=== PATIENT | male | born 1970 | race Caucasian/White ===

== ENCOUNTER 2018-10-01 23:22 | Observation (INO) ==
[2018-10-02] MEDS ORDERED: Aspirin 325 MG Tablet PO ONE (00:02)
--- NOTE | 2018-10-02 00:08 | ED ---
HPI General Chief Complaint: Abdominal Pain Stated Complaint: Abd Pain Time Seen by Provider: 10/01/18 23:46 Source: patient and family Mode of arrival: ambulatory Limitations: no limitations History of Present Illness HPI narrative: Mr Soto is a 48 year old male who presents to the ED for evaluation of indigestion and burping that is similar to the onset of a previous episode in 06/2018 that led to a cardiac catheterization and 3 stents being placed. The patient states that at that time he had a feeling of indigestion and burning under his sternum that was completely new for him, as he has no history of acid reflux or GERD. He presented to the ED in [facility] and was subsequently treated via cardiac catheterization. 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 Today, he is having similar symptoms to the initial presentation in 06/2018 and is concerned he is having another cardiac event. He states he has had indigestion and belching for 3-3.5 hours. He denies chest pain, headache, nausea , vomiting, abdominal pain, syncope, lightheadedness, or SOB. His PMH is significant for DMT2, CAD, HTN, and hypercholesterolemia. He is on Brilinta and ASA. The patient denies tobacco, alcohol, or drug use. Currently states his discomfort is 4 out of 10. He took a baby aspirin. He denies any injury or trauma. Per patient symptoms are somewhat similar with the exception that she does not have a doom like sensation that he had when he had the initial NV. Related Data Home Medications Medication Instructions Recorded Confirmed aspirin 81 mg PO DAILY 10/01/18 10/01/18 atorvastatin 20 mg PO DAILY 10/01/18 10/01/18 metformin 2,000 mg PO DAILY 10/01/18 10/01/18 ticagrelor [Brilinta] 90 mg PO BID 10/01/18 10/01/18 Allergies Allergy/AdvReac Type Severity Reaction Status Date / Time No Known Allergies Allergy Verified 10/01/18 23:43 Review of Systems ROS: all other systems reviewed are negative [facility] Medical History Medical History Diabetes (Acute) HTN (hypertension) (Acute) High cholesterol (Acute) Surgical History Surgical History History of cardiac cath (Acute) History of coronary artery stent placement (Acute) Hx of prior ablation treatment (Acute) Social History Social History Smoking Status: Never smoker How Often Do You Have a Drink Containing Alcohol: Never Recent Travel in [place] within the Last 8 Weeks: No Recent Out of Country Travel within the Last 8 Weeks: No Immunization History Tetanus Immunization: Unsure Exam Narrative Exam Narrative: GENERAL: Patient is a well developed well nourished male in [facility]. SKIN: Warm and dry. HEAD: Atraumatic. Normocephalic. EYES: Pupils equal and round. No scleral icterus. No injection or drainage. ENT: No nasal bleeding or discharge. Mucous membranes pink and moist. NECK: Trachea midline. No JVD. CARDIOVASCULAR: Regular rate and rhythm. No murmurs rubs or gallops. RESPIRATORY: No accessory muscle use. Clear to auscultation. Breath sounds equal bilaterally. GASTROINTESTINAL: Abdomen soft, non-tender, nondistended. Hepatic and splenic margins not palpable. MUSCULOSKELETAL: Extremities without clubbing, cyanosis, or edema. No obvious deformities. Full ROM of the upper and lower extremities bilaterally. 2+ pulses in the upper and lower extremities bilaterally. NEUROLOGICAL: Awake and alert. No obvious cranial nerve deficits. Motor grossly within normal limits. Five out of 5 muscle strength in the arms and legs. Normal speech. PSYCHIATRIC: Appropriate mood and affect; insight and judgment normal. Course Initial Documented Vital Signs Temperature 98.2 F 10/01/18 23:40 Pulse Rate 73 10/01/18 23:40 Respiratory Rate 18 10/01/18 23:40 Blood Pressure 138/85 10/01/18 23:40 Pulse Oximetry 99 10/01/18 23:40 Last Documented Vital Signs Temperature 98.2 F 10/01/18 23:40 Pulse Rate 76 10/01/18 23:48 Respiratory Rate 16 10/01/18 23:48 Blood Pressure 137/86 10/01/18 23:48 Pulse Oximetry 99 10/01/18 23:48 Medical Decision Making MDM Narrative Medical decision making narrative: 48-year-old male who presents to the ED for evaluation of burping and symptoms similar to his previous cardiac disease. Labs and imaging were ordered. Patient was given aspirin. At this time case will be sent to my attending pain disposition and plan. Initial evaluation is negative. However, given his significant history of coronary artery disease status post 3 stents, he needs to be admitted to the chest pain center for further evaluation. He is agreeable with this plan. Medical Screen Exam Complete: Yes Emergency Medical Condition: Yes Differential Diagnosis Differential Diagnosis: STEMI versus an STEMI versus cardiac disease versus angina Medical Records Medical records reviewed: Yes I reviewed the patient's medical records. Lab Data Lab results reviewed: Yes I reviewed the patient's lab results. Result diagrams: 10/02/18 00:15 10/02/18 00:15 Lab Results 10/02/18 10/02/18 10/02/18 Range/Units 00:15 00:15 00:15 WBC 7.1 (4.0-11.0) th/mm3 RBC 3.75 L (4.50-5.90) mil/mm3 Hgb 10.8 L (13.0-17.0) gm/dL Hct 33.0 L (39.0-51.0) % MCV 87.8 (80.0-100.0) fL MCH 28.8 (27.0-34.0) pg MCHC 32.7 (32.0-36.0) % RDW 15.0 (11.6-17.2) % Plt Count 255 (150-450) th/mm3 MPV 10.1 (7.0-11.0) fL Prelim Diff (Auto) Slide review pending Neut % (Auto) 73.9 H (16.0-70.0) % Lymph % (Auto) 13.6 (9.0-44.0) % [place] % (Auto) 9.7 H (0.0-8.0) % Eos % (Auto) 1.3 (0.0-4.0) % Baso % (Auto) 1.5 (0.0-2.0) % Neut # (Auto) 5.3 (1.8-7.7) th/mm3 Lymph # (Auto) 1.0 (1.0-4.8) th/mm3 [place] # (Auto) 0.7 (0.0-0.9) th/mm3 Eos # (Auto) 0.1 (0.0-0.4) th/mm3 Baso # (Auto) 0.1 (0.0-0.2) th/mm3 WBC Differential . Diff Scan Auto diff confirmed Differential Comment . Platelet Estimate Normal (Normal) Platelet Morphology Normal (Normal) RBC Morphology Normal (Normal) PT 10.5 (9.8-11.6) sec INR 1.0 Ratio APTT 25.9 (23.4-31.7) sec Sodium 142 (136-145) meq/L Potassium 4.0 (3.5-5.1) meq/L Chloride 107 (98-107) meq/L Carbon Dioxide 26.0 (21.0-32.0) meq/L Anion Gap 9 (5-15) meq/L BUN 15 (7-18) mg/dL Creatinine 0.86 (0.60-1.30) mg/dL Estimated GFR Greater than 89 (>89) mL/min Random Glucose 132 H (74-106) mg/dL Calcium 8.6 (8.5-10.1) mg/dL Magnesium 2.0 (1.5-2.5) mg/dL Total Bilirubin 0.5 (0.2-1.0) mg/dL AST 24 (15-37) U/L ALT 21 (12-78) U/L Alkaline Phosphatase 61 (45-117) U/L Total Creatine Kinase 73 (39-308) U/L Troponin I Less than 0.02 L (0.02-0.05) ng/mL Total Protein 7.6 (6.4-8.2) g/dL Albumin 3.6 (3.4-5.0) g/dL Lipase 362 (73-393) U/L Imaging Data Radiologist's impression: Chest X-Ray 10/02/18 00:12 CONCLUSION: Negative examination. ECG Data Attestation: I personally reviewed and interpreted this ECG as follows: Interpretation: EKG shows sinus rhythm with no sign of acute ischemia and arrhythmia read by me and attending. Ventricular rate of 71 speed per minute, MA interval of 179 otf-seconds Discharge Plan Discharge Disposition Patient Disposition: ED Admit(ED Internal Use Only) Discharge Order Discharge Orders: ED Use Only Admit Order (Routine); Ordered 10/02/18 Ordered By: Imelda Becerra Discharge Details Diagnosis: Chest pain Physicians Team ED Provider: Imelda Becerra ED Midlevel Provider: Filipe Aldrich Primary Care Provider: Blaire Mascorro Rxs /Orders / Referrals /Forms Prescriptions: No Action atorvastatin 20 mg Tablet 20 mg PO DAILY RF: 0 aspirin 81 mg Tablet,Chewable 81 mg PO DAILY RF: 0 metformin 1,000 mg Tablet,Er Claudette.Retention 24 Hr 2,000 mg PO DAILY RF: 0 ticagrelor [Brilinta] 90 mg Tablet 90 mg PO BID RF: 0 Discharge Interventions Interventions: Vital Signs Last Done: 10/01/18 23:48 Status ED Status: With Doctor
[2018-10-02 00:24] LABS: Baso # (Auto) 0.1 th/mm3 (0.0-0.2); Baso % (Auto) 1.5 % (0.0-2.0); Eos # (Auto) 0.1 th/mm3 (0.0-0.4); Eos % (Auto) 1.3 % (0.0-4.0); Hemoglobin 10.8 gm/dL (13.0-17.0); Lymph % (Auto) 13.6 % (9.0-44.0); Mean Corpuscular HGB Conc 32.7 % (32.0-36.0); Mean Corpuscular Hemoglobin 28.8 pg (27.0-34.0); Mean Corpuscular Volume 87.8 fL (80.0-100.0); Mean Platelet Volume 10.1 fL (7.0-11.0); Mono # (Auto) 0.7 th/mm3 (0.0-0.9); Mono % (Auto) 9.7 % (0.0-8.0); Neut # (Auto) 5.3 th/mm3 (1.8-7.7); Neut % (Auto) 73.9 % (16.0-70.0); Platelet Count 255 th/mm3 (150-450); Red Blood Count 3.75 mil/mm3 (4.50-5.90); White Blood Count 7.1 th/mm3 (4.0-11.0)
--- NOTE | 2018-10-02 00:29 | XR ---
EXAM DATE: 10/02/2018 12:26 AM EST AGE/SEX: 48 years / Male INDICATIONS: Chest pain this evening. CLINICAL DATA: This is the patient's initial encounter. Patient reports that signs and symptoms have been present for 1 day and indicates a pain score of 3/10. MEDICAL/SURGICAL HISTORY: Hypertension. Coronary artery stent. COMPARISON: No prior exams available for comparison. FINDINGS: A single AP view of the chest demonstrates the lungs to be symmetrically aerated without evidence of mass, infiltrate or effusion. The cardiomediastinal contours are unremarkable. Osseous structures a re intact. CONCLUSION: Negative examination. Electronically signed by: Sixto Nino MD 10/02/2018 12:27 AM EST
[2018-10-02 00:32] LABS: Activated Partial Thrombo Time 25.9 sec (23.4-31.7); Prothrombin Time 10.5 sec (9.8-11.6)
[2018-10-02 00:48] LABS: Platelet Estimate Normal (Normal); Platelet Morphology Normal (Normal); RBC Morphology Normal (Normal)
[2018-10-02 00:50] LABS: Alanine Aminotransferase 21 U/L (12-78); Albumin 3.6 g/dL (3.4-5.0); Anion Gap 9 meq/L (5-15); Aspartate Aminotransferase 24 U/L (15-37); Blood Urea Nitrogen 15 mg/dL (7-18); Calcium 8.6 mg/dL (8.5-10.1); Chloride 107 meq/L (98-107); Glomerular Filtration Rate Greater Than 89 mL/min (>89); Glucose,Random 132 mg/dL (74-106); Lipase 362 U/L (73-393); Sodium 142 meq/L (136-145)
[2018-10-02 00:52] LABS: Alkaline Phosphatase 61 U/L (45-117); Total Protein 7.6 g/dL (6.4-8.2)
[2018-10-02 01:35] LABS: Creatine Kinase 73 U/L (39-308)
[2018-10-02 04:08] LABS: Creatine Kinase 128 U/L (39-308)
[2018-10-02 07:08] LABS: Creatine Kinase 51 U/L (39-308)
--- NOTE | 2018-10-02 09:09 | P.HPCA ---
History of Present Illness Primary Care Physician: Blaire Mascorro MD History of Present Illness: This is a 48-year-old male that presents to ED with history of CAD with 3 stents placed July 02, 2018 while he was in [place] that presents to ED to be evaluated for her symptoms which worried him, he thought that it may have been related to his heart as it was before. States that in June he was out of town on business when he was having a lot of burping and belching. He went to an ER and had some studies done including a CT coronary which showed a lot of calcium buildup and the decision was then made to do a cardiac catheterization. He states he was found to have a 99% stenosis of LAD and also needed stenting of OM1 and OM 2. States he never had any chest discomfort. Last night while at home he developed a burping and belching sensation as well. It lasted about 3 and half hours. He had no discomforts. Found nothing really to worsen or improve it. He was concerned as it felt the same as the symptoms led to his stenting in the past. He has followed Dr. Singh for chest pain but has had normal stress test. States he has not had a stress test or heart catheterization since stenting. He has seen Dr. Bridges for paroxysmal SVT and had a scheduled ablation September 06 for that. 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 He was placed on antibiotics for period of time secondary to that. Has not noticed any arrhythmias since. History of CAD with 3 stents July 02, 2018. Hyperlipidemia and diabetes. Denies hypertension. His father had CAD. Lifetime non-smoker. Denies alcohol or illicit drug use. - Diagnosis (1) CAD (coronary artery disease) (2) Hx of heart artery stent (3) Hyperlipidemia (4) Diabetes Review of Systems General: Patient denies fevers, chills, and recent travel. HEENT: Patient denies headache, sore throat, difficulty swallowing. Cardiovascular: Denies chest discomfort as mentioned above. Denies sensation of heart beating rapidly or irregularly. No syncope. Respiratory: Denies shortness of breath or inspirational chest discomfort. Denies coughing wheezing or hemoptysis. GI: Had sensation of belching and burping for about 3 and half hours. Patient denies nausea, vomiting, diarrhea, abdominal pain, bloody stools. Musculoskeletal: Patient denies joint pain or edema. Denies calf pain or edema. Neurovascular: Patient denies numbness, tingling, weakness in extremities. Denies headache. Endocrine: Denies polyuria and polydipsia. Hematologic: Denies easy bruising. Skin: Denies rash or itching. PMFSH - History History Provided By: Patient - Medical History Medical History: Medical History (Last Reviewed 10/02/18 @ 00:05 by CLARA Mauricio) Diabetes HTN (hypertension) High cholesterol - Surgical History Surgical History: Surgical History (Last Reviewed 10/02/18 @ 00:05 by CLARA Mauricio) History of cardiac cath Hx of prior ablation treatment History of coronary artery stent placement - Tobacco History Second Hand Smoke Exposure: No Smoking Status: Never smoker - Alcohol History How Often Do You Have a Drink Containing Alcohol: Never - Substance Use History Substance History: No History of Abuse - Travel History Recent Travel in the [place] Within the Last 8 Weeks: No Recent Travel Out of the Country Within the Last 8 Weeks: No - Immunization History Tetanus Immunization: Unsure Medications and Allergies Active Medications: Active Medications Sodium Chloride (Ns Flush) 2 ml IV.FLUSH BID DALILA Sodium Chloride (Ns Flush) 2 ml IV.FLUSH PRN PRN PRN Reason: FLUSH AFTER USING IV ACCESS Allergies Allergy/AdvReac Type Severity Reaction Status Date / Time No Known Allergies Allergy Verified 10/01/18 23:43 Home Medications Medication Instructions Recorded Confirmed Type aspirin 81 mg PO DAILY 10/01/18 10/01/18 History atorvastatin 20 mg PO DAILY 10/01/18 10/01/18 History metformin 2,000 mg PO DAILY 10/01/18 10/01/18 History ticagrelor [Brilinta] 90 mg PO BID 10/01/18 10/01/18 History Exam Vital signs: Vital Signs 10/01/18 23:40 10/01/18 23:48 10/02/18 02:33 Temperature 98.2 F Pulse Rate 73 76 65 Respiratory Rate 18 16 16 Blood Pressure 138/85 137/86 118/78 Pulse Oximetry 99 99 98 10/02/18 03:42 10/02/18 04:00 10/02/18 08:00 Temperature 97.8 F 97.8 F Pulse Rate 73 68 76 Respiratory Rate 20 20 Blood Pressure 128/80 109/71 Pulse Oximetry 100 99 Intake & Output 10/01/18 10/02/18 10/02/18 18:59 06:59 18:59 Intake Total 0 / 0 Balance 0 / 0 Weight 71.7 kg Intake: Oral 0 / 0 Other: # Voids 2 Date of Last Bowel Movement 10/01/18 Weight On Admission 72.575 kg Narrative: GENERAL: This is a well-nourished, well-developed patient, in no apparent distress. Patient speaks in clear complete sentences. Patient is pleasant. HEENT: Head is atraumatic and normocephalic. Neck is supple without lymphadenopathy and trachea is midline. No JVD or carotid bruits. CARDIOVASCULAR: Regular rate and rhythm without murmurs, gallops, or rubs. RESPIRATORY: Clear to auscultation. Breath sounds equal bilaterally. No wheezes , rales, or rhonchi. Chest wall is nontender. No use of accessory muscles. GASTROINTESTINAL: Abdomen is nontender, nondistended. Abdomen soft. No obvious pulsatile mass or bruit. No CVA tenderness. Strong femoral pulses bilaterally. Normal bowel sounds in all quadrants. MUSCULOSKELETAL: Patient is moving upper and lower extremities freely. No calf tenderness or edema, no Homans sign. Strong pulses in upper and lower extremities. NEUROLOGICAL: Patient is alert and oriented. Cranial nerves 2-12 are grossly intact. No focal deficits and speech is clear. SKIN: No rash and turgor is normal. Results 10/02/18 00:15 10/02/18 00:15 Cardiac Enzymes 10/02/18 10/02/18 10/02/18 Range/Units 00:15 03:15 06:13 AST 24 (15-37) U/L Troponin I Less than 0.02 L Less than 0.02 L Less than 0.02 L (0.02-0.05) ng/mL Coagulation 10/02/18 Range/Units 00:15 PT 10.5 (9.8-11.6) sec APTT 25.9 (23.4-31.7) sec CBC 10/02/18 Range/Units 00:15 WBC 7.1 (4.0-11.0) th/mm3 RBC 3.75 L (4.50-5.90) mil/mm3 Hgb 10.8 L (13.0-17.0) gm/dL Hct 33.0 L (39.0-51.0) % Plt Count 255 (150-450) th/mm3 Neut # (Auto) 5.3 (1.8-7.7) th/mm3 Lymph # (Auto) 1.0 (1.0-4.8) th/mm3 [place] # (Auto) 0.7 (0.0-0.9) th/mm3 Eos # (Auto) 0.1 (0.0-0.4) th/mm3 Baso # (Auto) 0.1 (0.0-0.2) th/mm3 Comprehensive Metabolic Panel 10/02/18 Range/Units 00:15 Sodium 142 (136-145) meq/L Potassium 4.0 (3.5-5.1) meq/L Chloride 107 (98-107) meq/L Carbon Dioxide 26.0 (21.0-32.0) meq/L BUN 15 (7-18) mg/dL Creatinine 0.86 (0.60-1.30) mg/dL Calcium 8.6 (8.5-10.1) mg/dL AST 24 (15-37) U/L ALT 21 (12-78) U/L Alkaline Phosphatase 61 (45-117) U/L Total Protein 7.6 (6.4-8.2) g/dL Albumin 3.6 (3.4-5.0) g/dL Intake and Output 10/01/18 10/02/18 10/02/18 22:59 06:59 14:59 Intake Total 0 / 0 Balance 0 / 0 Intake: Oral 0 / 0 Other: # Voids 2 Date of Last Bowel Movement 10/01/18 Weight 71.7 kg Weight On Admission 72.575 kg - Imaging and Cardiology Imaging: Impressions Chest X-Ray 10/02/18 00:12 CONCLUSION: Negative examination. EKG interpretations - EKG EKG shows: sinus rhythm (Sinus rhythm without significant ST segment depressions or elevations.) Caprini VTE Risk Assessment Caprini VTE Risk Assessment: No/Low Risk (score <= 1) Caprini Risk Assessment Model: Point Value = 1 Point Value = 2 Point Value = 3 Point Value = 5 Age 41-60 Minor surgery BMI > 25 kg/m2 Swollen legs Varicose veins or History of unexplained or recurrent spontaneous Oral contraceptives or hormone replacement Sepsis (< 1 month) Serious lung disease, including pneumonia (< 1 month) Abnormal pulmonary function Acute myocardial infarction Congestive heart failure (< 1 month) History of inflammatory bowel disease Medical patient at bed rest Age 61-74 Arthroscopic surgery Major open surgery (> 45 min) Laparoscopic surgery (> 45 min) Malignancy Confined to bed (> 72 hours) Immobilizing plaster cast Central venous access Age >= 75 History of VTE Family history of VTE Factor V Leiden Prothrombin [id number] Lupus anticoagulant Anticardiolipin antibodies Elevated serum homocysteine Heparin-induced thrombocytopenia Other congenital or acquired thrombophilia Stroke (< 1 month) Elective arthroplasty Hip, pelvis, or leg fracture Acute spinal cord injury (< 1 month) Prophylaxis Regimen: Total Risk Factor Score Risk Level Prophylaxis Regimen 0-1 Low Early ambulation 2 Moderate Order ONE of the following: *Sequential Compression Device (SCD) *Heparin 5000 units SQ BID 3-4 Higher Order ONE of the following medications: *Heparin 5000 units SQ TID *Enoxaparin/Lovenox 40 mg SQ daily (WT < 150 kg, CrCl > 30 mL/min) *Enoxaparin/Lovenox 30 mg SQ daily (WT < 150 kg, CrCl > 10-29 mL/min) *Enoxaparin/Lovenox 30 mg SQ BID (WT < 150 kg, CrCl > 30 mL/min) AND/OR *Sequential Compression Device (SCD) 5 or more Highest Order ONE of the following medications: *Heparin 5000 units SQ TID (Preferred with Epidurals) *Enoxaparin/Lovenox 40 mg SQ daily (WT < 150 kg, CrCl > 30 mL/min) *Enoxaparin/Lovenox 30 mg SQ daily (WT < 150 kg, CrCl > 10-29 mL/min) *Enoxaparin/Lovenox 30 mg SQ BID (WT < 150 kg, CrCl > 30 mL/min) AND *Sequential Compression Device (SCD) Assessment and Plan - Assessment (1) CAD (coronary artery disease) Code(s): I25.10 - Atherosclerotic heart disease of [place] coronary artery without angina pectoris Status: Acute (2) Hx of heart artery stent Code(s): Z95.5 - Presence of coronary angioplasty implant and graft Status: Acute (3) Hyperlipidemia Code(s): E78.5 - Hyperlipidemia, unspecified Status: Acute (4) Diabetes Code(s): E11.9 - Type 2 diabetes mellitus without complications Status: Acute - Plan * CAD: Patient will need follow-up with his roof technician. Resume his medications. * Hyperlipidemia: Continue medication. * Diabetes: Sliding scale insulin coverage while in chest pain center. Follow diabetic diet. Resume medication at discharge. Patient is stable at this time. He is agreeable to this plan. He should return to ED for interval issues. Patient underwent ETT. His belching symptoms reproduced during ETT and he had inferior lateral ST-T depressions more so inferiorly. Stress test was stopped shortly after reaching goal heart rate. His symptoms seem to resolve quickly in recovery and ST segments returned to baseline within [address] Matthew recommends patient to be admitted with consult to his roof technician for likely cardiac catheterization. I spoke with Dr. Eliecer Valdez who is covering for Dr. Almanzar. Recommends keeping the patient on his Brilinta, aspirin , and statin. Start 12.5 mg metoprolol twice daily, Nitropaste 1/2 inch every 6 hours, and heparin drip. This has been started. States that he will likely have heart catheterization with Dr. vilchis on Thursday. Patient is agreeable to this plan. H&P: Quality - VTE Deep Vein Thrombosis/Pulmonary Embolism Present on Admission: No
--- NOTE | 2018-10-02 09:19 | P.PNCA ---
Subjective Interval history: Patient was seen and evaluated by the physician furniture servicer and then presented. The patient was then subsequently seen and examined by me personally. I am in agreement with the documentation is entered and would only add that he represents a complex presentation due to the fact that his current symptoms are noncardiac however they are similar to his previous presentation when he subsequently was found to have known cardiac disease. He has also had an ablation for SVT complicated by a significant bleed in his abdomen. Subsequent to that he developed a fever and was placed on broad-spectrum antibiotics. Having just terminated his antibiotics it is certainly indeed possible that his GI problems currently could be related to antibiotic usage but again due to his prior presentation for evaluation including exercise stress testing will be carried out. Medications and Allergies Active Medications: Active Medications Sodium Chloride (Ns Flush) 2 ml IV.FLUSH BID DALILA Sodium Chloride (Ns Flush) 2 ml IV.FLUSH PRN PRN PRN Reason: FLUSH AFTER USING IV ACCESS Allergies Allergy/AdvReac Type Severity Reaction Status Date / Time No Known Allergies Allergy Verified 10/01/18 23:43 Home Medications Medication Instructions Recorded Confirmed Type aspirin 81 mg PO DAILY 10/01/18 10/01/18 History atorvastatin 20 mg PO DAILY 10/01/18 10/01/18 History metformin 2,000 mg PO DAILY 10/01/18 10/01/18 History ticagrelor [Brilinta] 90 mg PO BID 10/01/18 10/01/18 History Physical Exam Vital signs: Vital Signs 10/01/18 23:40 10/01/18 23:48 10/02/18 02:33 Temperature 98.2 F Pulse Rate 73 76 65 Respiratory Rate 18 16 16 Blood Pressure 138/85 137/86 118/78 Pulse Oximetry 99 99 98 10/02/18 03:42 10/02/18 04:00 10/02/18 08:00 Temperature 97.8 F 97.8 F Pulse Rate 73 68 76 Respiratory Rate 20 20 Blood Pressure 128/80 109/71 Pulse Oximetry 100 99 Intake & Output 10/01/18 10/02/18 10/02/18 18:59 06:59 18:59 Intake Total 0 / 0 Balance 0 / 0 Weight 71.7 kg Intake: Oral 0 / 0 Other: # Voids 2 Date of Last Bowel Movement 10/01/18 Weight On Admission 72.575 kg Narrative: Well-nourished well-developed man in no acute distress Neck supple no JVD masses nodes or bruits Chest clear to auscultation with no rales wheezes or rhonchi Cardiovascular the rhythm is regular sinus and there are no gallops rubs or murmurs Abdomen is soft nontender (slight tenderness in the right lower quadrant in the area of his known bleed) no guarding or rebound no hepatosplenomegaly Results 10/02/18 00:15 10/02/18 00:15 Cardiac Enzymes 10/02/18 10/02/18 10/02/18 Range/Units 00:15 03:15 06:13 AST 24 (15-37) U/L Troponin I Less than 0.02 L Less than 0.02 L Less than 0.02 L (0.02-0.05) ng/mL Coagulation 10/02/18 Range/Units 00:15 PT 10.5 (9.8-11.6) sec APTT 25.9 (23.4-31.7) sec CBC 10/02/18 Range/Units 00:15 WBC 7.1 (4.0-11.0) th/mm3 RBC 3.75 L (4.50-5.90) mil/mm3 Hgb 10.8 L (13.0-17.0) gm/dL Hct 33.0 L (39.0-51.0) % Plt Count 255 (150-450) th/mm3 Neut # (Auto) 5.3 (1.8-7.7) th/mm3 Lymph # (Auto) 1.0 (1.0-4.8) th/mm3 [place] # (Auto) 0.7 (0.0-0.9) th/mm3 Eos # (Auto) 0.1 (0.0-0.4) th/mm3 Baso # (Auto) 0.1 (0.0-0.2) th/mm3 Comprehensive Metabolic Panel 10/02/18 Range/Units 00:15 Sodium 142 (136-145) meq/L Potassium 4.0 (3.5-5.1) meq/L Chloride 107 (98-107) meq/L Carbon Dioxide 26.0 (21.0-32.0) meq/L BUN 15 (7-18) mg/dL Creatinine 0.86 (0.60-1.30) mg/dL Calcium 8.6 (8.5-10.1) mg/dL AST 24 (15-37) U/L ALT 21 (12-78) U/L Alkaline Phosphatase 61 (45-117) U/L Total Protein 7.6 (6.4-8.2) g/dL Albumin 3.6 (3.4-5.0) g/dL Intake and Output 10/01/18 10/02/18 10/02/18 22:59 06:59 14:59 Intake Total 0 / 0 Balance 0 / 0 Intake: Oral 0 / 0 Other: # Voids 2 Date of Last Bowel Movement 10/01/18 Weight 71.7 kg Weight On Admission 72.575 kg - Imaging and Cardiology Imaging: Impressions Chest X-Ray 10/02/18 00:12 CONCLUSION: Negative examination. Assessment and Plan - Assessment (1) CAD (coronary artery disease) Code(s): I25.10 - Atherosclerotic heart disease of [place] coronary artery without angina pectoris Status: Acute Plan: We will obtain an exercise stress test under close observation. If positive Dr. Ramos's will be contacted for discussion of further treatment. If negative he will be discharged to routine follow-up on an outpatient basis. (2) Hx of heart artery stent Code(s): Z95.5 - Presence of coronary angioplasty implant and graft Status: Acute (3) Hyperlipidemia Code(s): E78.5 - Hyperlipidemia, unspecified Status: Acute (4) Diabetes Code(s): E11.9 - Type 2 diabetes mellitus without complications Status: Acute - Plan * * CAD: Patient will need follow-up with his crisis therapist. Resume his medications. * Hyperlipidemia: Continue medication. * Diabetes: Sliding scale insulin coverage while in chest pain center. Follow diabetic diet. Resume medication at discharge. Patient is stable at this time. He is agreeable to this plan. He should return to ED for interval issues.
--- NOTE | 2018-10-02 09:29 | ECG ---
Date Performed: 10/02/2018 Time Performed: 06:18:55 PTAGE: 48 years EKG: Sinus rhythm MODERATE INTRAVENTRICULAR CONDUCTION DELAY BORDERLINE ECG No significant change PREVIOUS TRACING : 08/05/2015 03.00 DOCTOR: Kei Matthew Interpretating Date/Time 10/02/2018 09:28:09
--- NOTE | 2018-10-02 09:32 | ECG ---
Date Performed: 10/02/2018 Time Performed: 02:04:01 PTAGE: 48 years EKG: Sinus rhythm MODERATE INTRAVENTRICULAR CONDUCTION DELAY BORDERLINE ECG No significant change PREVIOUS TRACING : 10/01/2018 23.49 DOCTOR: Kei Matthew Interpretating Date/Time 10/02/2018 09:30:30
--- NOTE | 2018-10-02 09:32 | ECG ---
Date Performed: 10/02/2018 Time Performed: 03:53:10 PTAGE: 48 years EKG: Sinus rhythm MODERATE INTRAVENTRICULAR CONDUCTION DELAY BORDERLINE ECG No significant change PREVIOUS TRACING : 08/05/2015 03.00 DOCTOR: Kei Matthew Interpretating Date/Time 10/02/2018 09:30:18
--- NOTE | 2018-10-02 09:32 | ECG ---
Date Performed: 10/01/2018 Time Performed: 23:49:28 PTAGE: 48 years EKG: Sinus rhythm MODERATE INTRAVENTRICULAR CONDUCTION DELAY BORDERLINE ECG INTERPRETATION BASED ON A DEFAULT AGE OF 3 0 YEARS No change PREVIOUS TRACING : 08/05/2015 03.00 DOCTOR: Kei Matthew Interpretating Date/Time 10/02/2018 09:30:55
[2018-10-02] MEDS ORDERED: Acetaminophen 500 MG Tablet PO PRN (10:05)
[2018-10-02] MEDS ORDERED: Heparin 10,000 UNITS/10 ML Vial (for IV use) IV.PUSH STA (10:37)
[2018-10-02] MEDS: Metoprolol Tartrate 25 MG Tablet PO SCH ×2 (11:04→21:21)
--- NOTE | 2018-10-02 11:05 | TR ---
Date Performed: 10/02/2018 Time Performed: 09:22:47 DOCTOR: Kei Matthew DRUG LIST: CLINICAL HISTORY: REASON FOR TEST: Chest pain REASON FOR ENDING: OBSERVATION: CONCLUSION: SHELBIE PROTOCOL. HAD BELCHING SYMPTOMS DURING STRESS TEST. INF/LAT ST CHANGES.Maximum OQ=553 % Max HR Achieved=87.0% Maximum QN=981/78 Total Exercise Time=7:15 COMMENTS: Inferior lateral flat ST depression is seen suggestive of ischemia. Further evaluatio n recommended.
[2018-10-02] MEDS: Heparin Drip 25,000 UNIT/250 ML BAG IV.CONT PRN (11:33)
[2018-10-02 11:34] LABS: Activated Partial Thrombo Time 26.8 sec (23.4-31.7); INR 1.1 Ratio; Prothrombin Time 10.9 sec (9.8-11.6)
[2018-10-02] MEDS: Insulin NovoLIN Regular Correctional Sugar Inj SQ SCH ×2 (12:31→18:07)
[2018-10-02] MEDS ORDERED: Heparin 10,000 UNITS/10 ML Vial (for IV use) IV.PUSH PRN ×2 (16:37→16:38)
--- NOTE | 2018-10-02 18:35 | MB ---
cc: Eliecer Valdez MD DATE: 10/02/2018 REASON FOR CONSULTATION: Evaluation of acute coronary syndrome. HISTORY OF PRESENT ILLNESS: Aaron is a 48-year-old male followed by my colleague, Dr. Singh. He has hypertension, diabetes, hyperlipidemia, and a family history of coronary artery disease. He had an evaluation for uncontrolled burping and some burning sensation in his left chest that culminated in a cardiac catheterization 07/02/2018. His first obtuse marginal branch was stented with a 2.25 x 8 mm Resolute Gary stent deployed at 14 atmospheres. The second obtuse marginal branch was primarily stented with a 2.5 x 8 mm Gary stent deployed at 16 atmospheres. The mid LAD was predilated with a 2.5 mm balloon and stented with a 2.75 x 15 mm Resolute stent at 16 atmospheres. This led to resolution of his burping type symptoms. He was fine until last night. Last night, he developed symptoms similar to what he had prior to his stents. His troponins were negative, but he nuclear underwent a treadmill test that showed significant lateral ST changes and now he has been admitted. 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 This was complicated by bleeding from an inferior epigastric artery that underwent coil embolization successfully. PAST MEDICAL HISTORY: Includes: 1. Coronary artery disease. 2. Hypertension. 3. Diabetes. 4. Hyperlipidemia. 5. Paroxysmal supraventricular tachycardia that has been ablated. 6. He also had some atrial fibrillation during that EP study. PAST SURGICAL HISTORY: Includes prior shoulder repair. MEDICATIONS: None. FAMILY HISTORY: Positive for coronary artery disease. SOCIAL HISTORY: He is an RN. He has never smoked. PHYSICAL EXAMINATION: GENERAL: Shows a well-developed, well-nourished white male, in no acute distress. VITAL SIGNS: Charted. HEENT: Unremarkable. NECK: Negative for JVD or bruits. CHEST: Clear to auscultation. CARDIOVASCULAR: S1, S2. Regular rate and rhythm. No murmurs. No gallops. ABDOMEN: Soft, nontender. No masses or organomegaly. EXTREMITIES: No clubbing, cyanosis or edema. DATA: His hematocrit is 33.2. Remainder of are charted. EKG does not show any acute changes. ASSESSMENT: Suspected unstable angina. Symptoms are atypical, but similar to the symptoms he had prior to stenting. RECOMMENDATIONS: He has been started on low-dose nitroglycerin ointment and a beta monae. In addition, IV heparin on top of his aspirin and Brilinta. Will hold him n.p.o. after midnight Thursday. Anticipate he will need a cardiac catheterization Thursday by Dr. Singh. If he gets into acute trouble before then, we will do it over the weekend. All questions were answered. MD EFRA Valadez/penelope , 02:55 PM , 03:02 PM
[2018-10-03] MEDS: Insulin NovoLIN Regular Correctional Sugar Inj SQ SCH ×5 (00:16→22:19)
[2018-10-03 08:36] LABS: Hematocrit 36.6 % (39.0-51.0); Mean Corpuscular HGB Conc 32.8 % (32.0-36.0); Mean Corpuscular Hemoglobin 28.9 pg (27.0-34.0); Mean Corpuscular Volume 88.2 fL (80.0-100.0); Mean Platelet Volume 9.8 fL (7.0-11.0); Platelet Count 223 th/mm3 (150-450); Red Blood Count 4.15 mil/mm3 (4.50-5.90); White Blood Count 7.1 th/mm3 (4.0-11.0)
[2018-10-03] MEDS ORDERED: Influenza (Quadrivalent) Vaccine 0.5 ML Syringe IM ONE (09:00)
[2018-10-03 09:01] LABS: Carbon Dioxide 25.5 meq/L (21.0-32.0); Potassium 3.8 meq/L (3.5-5.1)
[2018-10-03] MEDS: Metoprolol Tartrate 25 MG Tablet PO SCH ×3 (10:19→18:44)
[2018-10-03] MEDS ORDERED: ALPRAZolam 0.25 MG Tablet PO ONE (10:50)
[2018-10-03] MEDS ORDERED: ALPRAZolam 0.25 MG Tablet PO PRN (10:51)
--- NOTE | 2018-10-03 11:02 | P.PNCA ---
Subjective Interval history: no angina. no "burping. Lots of questions from him and his were answered. Medications and Allergies Active Medications: Active Medications Acetaminophen (Tylenol) 500 mg PO Q6H PRN PRN Reason: pain scale 1-5 Hydrocodone Bitart/Acetaminophen ([place] 7.5/325) 1 tab PO Q6H PRN PRN Reason: pain scale 6-10 Albuterol (Duoneb Neb (Prn)) 1 ampul NEB Q4HR NEB PRN PRN Reason: SHORTNESS OF BREATH/WHEEZING Alprazolam (Xanax) 0.25 mg PO Q6H PRN PRN Reason: ANXIETY Aspirin (Aspirin Chew) 81 mg PO DAILY [facility] Last Admin: 10/03/18 10:18 Dose: 81 mg Atorvastatin Calcium (Lipitor) 20 mg PO DAILY [facility] Last Admin: 10/03/18 10:18 Dose: 20 mg Heparin Sodium (Porcine) (Heparin Inj) 2,500 units IV.PUSH UNSCH PRN PRN Reason: aPTT 25-39 Last Admin: 10/03/18 01:23 Dose: 2,500 units Heparin Sodium (Porcine) (Heparin Inj) 5,000 units IV.PUSH UNSCH PRN PRN Reason: aPTT < 25 Heparin Sodium/Dextrose (Heparin/D5w 25,000 U/250 Ml) 25,000 unit in 250 mls @ 9 mls/hr IV.CONT TITRATE PRN; Protocol PRN Reason: Per Protocol Last Titration: 10/03/18 06:03 Dose: 1,000 units/hr, 10 mls/hr Sodium Chloride (Ns Inj) 1,000 mls @ 100 mls/hr IV.CONT .Q10H [facility] Insulin Human Regular (Novolin R [place] Sugar Inj) 0 units SQ ACHS DALILA; Protocol Last Admin: 10/03/18 10:20 Dose: Not Given Metoprolol Tartrate (Lopressor) 12.5 mg PO BID [facility] Last Admin: 10/03/18 10:19 Dose: 12.5 mg Pantoprazole Sodium (Protonix) 40 mg PO DAILY [facility] Last Admin: 10/03/18 10:19 Dose: 40 mg Sodium Chloride (Ns Flush) 2 ml IV.FLUSH BID [facility] Last Admin: 10/03/18 10:20 Dose: 2 ml Sodium Chloride (Ns Flush) 2 ml IV.FLUSH PRN PRN PRN Reason: FLUSH AFTER USING IV ACCESS Ticagrelor (Brilinta) 90 mg PO BID DALILA Last Admin: 10/03/18 10:19 Dose: 90 mg Allergies Allergy/AdvReac Type Severity Reaction Status Date / Time No Known Allergies Allergy Verified 10/01/18 23:43 Home Medications Medication Instructions Recorded Confirmed Type aspirin 81 mg PO DAILY 10/01/18 10/01/18 History atorvastatin 20 mg PO DAILY 10/01/18 10/01/18 History metformin 2,000 mg PO DAILY 10/01/18 10/01/18 History ticagrelor [Brilinta] 90 mg PO BID 10/01/18 10/01/18 History Physical Exam Vital signs: Vital Signs 10/02/18 11:25 10/02/18 15:30 10/02/18 20:00 Temperature 98.7 F 98.0 F 98.3 F Pulse Rate 79 68 69 Respiratory Rate 20 20 16 Blood Pressure 119/78 114/75 113/80 Pulse Oximetry 100 98 99 10/03/18 00:00 10/03/18 04:00 10/03/18 08:00 Temperature 98.9 F 98.2 F 98.3 F Pulse Rate 80 62 73 Respiratory Rate 17 14 17 Blood Pressure 110/82 109/64 131/80 Pulse Oximetry 100 96 98 Intake & Output 10/02/18 10/03/18 10/03/18 18:59 06:59 18:59 Intake Total 550 / 550 Output Total 3 / 3 600 / 600 Balance -3 / -3 -50 / -50 Weight 72.5 kg Intake: IV 130 / 130 Heparin/D5W 25,000 U/250 mL 25, 130 / 130 000 unit In 250 ml @ 900 UNITS/ HR 9 mls/hr IV.CONT TITRATE PRN Rx#:[id number] Oral 420 / 420 Output: Urine 3 / 3 600 / 600 Other: # Voids 3 # Bowel Movements 1 Narrative: Had a 10 beat run [place] 0517 with no symptoma Alert, slightly anxious Neck: no JVD Chest CTA. CV S1S2 RRR with 1-2/6 ASH Abd soft Ext no C/C/E, pulses intact Results 10/03/18 08:20 10/03/18 08:20 Cardiac Enzymes 12/08/18 12/08/18 12/08/18 Range/Units 00:15 03:15 06:13 AST 24 (15-37) U/L Troponin I Less than 0.02 L Less than 0.02 L Less than 0.02 L (0.02-0.05) ng/mL 10/03/18 Range/Units 08:20 AST (15-37) U/L Troponin I Less than 0.02 L (0.02-0.05) ng/mL Coagulation 10/02/18 10/02/18 10/02/18 Range/Units 00:15 10:55 16:15 PT 10.5 10.9 (9.8-11.6) sec APTT 25.9 26.8 40.8 H D (23.4-31.7) sec 10/02/18 10/03/18 Range/Units 23:47 08:20 PT (9.8-11.6) sec APTT 37.4 H 50.3 H D (23.4-31.7) sec CBC 10/02/18 10/03/18 Range/Units 00:15 08:20 WBC 7.1 7.1 (4.0-11.0) th/mm3 RBC 3.75 L 4.15 L (4.50-5.90) mil/mm3 Hgb 10.8 L 12.0 L (13.0-17.0) gm/dL Hct 33.0 L 36.6 L (39.0-51.0) % Plt Count 255 223 (150-450) th/mm3 Neut # (Auto) 5.3 (1.8-7.7) th/mm3 Lymph # (Auto) 1.0 (1.0-4.8) th/mm3 [place] # (Auto) 0.7 (0.0-0.9) th/mm3 Eos # (Auto) 0.1 (0.0-0.4) th/mm3 Baso # (Auto) 0.1 (0.0-0.2) th/mm3 Comprehensive Metabolic Panel 10/02/18 10/03/18 Range/Units 00:15 08:20 Sodium 142 138 (136-145) meq/L Potassium 4.0 3.8 (3.5-5.1) meq/L Chloride 107 105 (98-107) meq/L Carbon Dioxide 26.0 25.5 (21.0-32.0) meq/L BUN 15 14 (7-18) mg/dL Creatinine 0.86 0.96 (0.60-1.30) mg/dL Calcium 8.6 9.0 (8.5-10.1) mg/dL AST 24 (15-37) U/L ALT 21 (12-78) U/L Alkaline Phosphatase 61 (45-117) U/L Total Protein 7.6 (6.4-8.2) g/dL Albumin 3.6 (3.4-5.0) g/dL Intake and Output 10/02/18 10/03/18 10/03/18 22:59 06:59 14:59 Intake Total 550 / 550 Output Total 600 / 600 Balance -50 / -50 Intake: IV 130 / 130 Heparin/D5W 25,000 U/250 mL 25, 130 / 130 000 unit In 250 ml @ 900 UNITS/ HR 9 mls/hr IV.CONT TITRATE PRN Rx#:[id number] Oral 420 / 420 Output: Urine 600 / 600 Other: # Voids 3 # Bowel Movements 1 Weight 72.5 kg 72.5 kg - Imaging and Cardiology Imaging: Impressions Chest X-Ray 10/02/18 00:12 CONCLUSION: Negative examination. Assessment and Plan - Assessment (1) Unstable angina pectoris due to coronary arteriosclerosis Code(s): I25.110 - Atherosclerotic heart disease of [place] coronary artery with unstable angina pectoris Status: Acute (2) Ventricular tachycardia (paroxysmal) Code(s): I47.2 - Ventricular tachycardia Status: Acute (3) CAD (coronary artery disease) Code(s): I25.10 - Atherosclerotic heart disease of [place] coronary artery without angina pectoris Status: Acute (4) Hx of heart artery stent Code(s): Z95.5 - Presence of coronary angioplasty implant and graft Status: Acute (5) Hyperlipidemia Code(s): E78.5 - Hyperlipidemia, unspecified Status: Acute - Plan Patient needs cardiac cath since he likely has restenosis or a new lesion. He is asymptomatic - prefer to schedule with Dr. Singh in AM since he looks stable. NSVT was asymptomatic. If arrythmia worsens will do today but makes more sense to do during regular hours/ no evidence of NSTEMI. Add Xanax for anxiety. Intensify antianginal therap by increasing his nitropaste to 1' q6h.
[2018-10-03] MEDS: Heparin Drip 25,000 UNIT/250 ML BAG IV.CONT PRN (13:49)
--- NOTE | 2018-10-03 16:53 | P.PNIM ---
Subjective Interval history: Patient is seen lying quietly in bed. He reports that he is feeling okay with no chest pain or shortness of breath at this time. Did have an episode of V. tach however that has resolved. No nausea vomiting or diarrhea. No fever or chills. Physical Exam Vital signs: Last Vital Signs Temp 97.8 F 10/03/18 12:00 Pulse 62 10/03/18 12:00 Resp 17 10/03/18 12:00 BP 110/72 10/03/18 12:00 Pulse Ox 100 10/03/18 12:00 Intake & Output 10/01/18 10/02/18 10/03/18 10/04/18 06:59 06:59 06:59 06:59 Intake Total 0 / 0 550 / 550 120 / 120 Output Total 603 / 603 Balance 0 / 0 -53 / -53 120 / 120 Weight 71.7 kg 72.5 kg Narrative: GENERAL: Well-nourished, well-developed adult male in no obvious distress. SKIN: Warm and dry. HEAD: Atraumatic. Normocephalic. CARDIOVASCULAR: Regular rate and rhythm. RESPIRATORY: No accessory muscle use. Clear to auscultation. Breath sounds equal bilaterally. GASTROINTESTINAL: Abdomen soft, non-tender, non-distended. Positive bowel sounds. MUSCULOSKELETAL: Extremities without clubbing, cyanosis, or edema. No obvious deformities. NEUROLOGICAL: Awake and alert. No obvious cranial nerve deficits. Motor grossly within normal limits. Normal speech. PSYCHIATRIC: Appropriate mood and affect; insight and judgment good. Results Labs CBC & Chem 7: 10/03/18 08:20 10/03/18 08:20 Labs: Microbiology 10/02/18 20:00 Stool Stool Occult Blood (VINOD) - Final Hemoccult negative Assessment and Plan (1) Unstable angina pectoris due to coronary arteriosclerosis: Code(s): I25.110 - Atherosclerotic heart disease of [place] coronary artery with unstable angina pectoris Status: Acute (2) Ventricular tachycardia (paroxysmal): Code(s): I47.2 - Ventricular tachycardia Status: Acute (3) CAD (coronary artery disease): Code(s): I25.10 - Atherosclerotic heart disease of [place] coronary artery without angina pectoris Status: Acute (4) Hx of heart artery stent: Code(s): Z95.5 - Presence of coronary angioplasty implant and graft Status: Acute (5) Hyperlipidemia: Code(s): E78.5 - Hyperlipidemia, unspecified Status: Acute Plan Patient is a 48-year-old male with a history of diabetes, hyperlipidemia, recent ablation (complicated by bleed and fever), and CAD with 3 stents placed 07/02/18 who presents to the emergency room with a complaint of chest discomfort as well as belching and burping. He reports that these are similar to symptoms that he had prior to his last cardiac cath. CAD/unstable angina/ventricular tachycardia -Cardiology consulted-plan to cath on Thursday morning -N.p.o. after midnight tonight -Heparin drip, Nitropaste, Xanax for anxiety Hyperlipidemia; chronic -Continue home medication Diabetes; chronic -Sliding scale coverage DVT prophylaxis: On heparin drip Discharge planning: Likely home once cleared by cardio Progress Note: Quality VTE Deep Vein Thrombosis/Pulmonary Embolism Present on Admission: No _ (1) CAD (coronary artery disease) Qualifiers: Associated angina: Coronary Disease-Associated Artery/Lesion type: [place] vs. transplanted heart: (2) Hyperlipidemia Qualifiers: Hyperlipidemia type:
[2018-10-04] MEDS ORDERED: Iohexol 350 MG/ML 100 ML Vial (for Cath Lab) IVCONTRAST ONE (01:53)
[2018-10-04] MEDS: Sod Chloride 0.9% Inj 1,000 ML IV.CONT SCH ×2 (05:51→16:18)
[2018-10-04 08:46] LABS: Hematocrit 33.4 % (39.0-51.0); Hemoglobin 10.8 gm/dL (13.0-17.0); Mean Corpuscular HGB Conc 32.5 % (32.0-36.0); Mean Corpuscular Volume 89.4 fL (80.0-100.0); Mean Platelet Volume 10.4 fL (7.0-11.0); Platelet Count 206 th/mm3 (150-450); Red Blood Count 3.73 mil/mm3 (4.50-5.90); Red Cell Distribution Width 15.6 % (11.6-17.2); White Blood Count 5.7 th/mm3 (4.0-11.0)
[2018-10-04] MEDS: Metoprolol Tartrate 25 MG Tablet PO SCH ×2 (08:52→20:30)
[2018-10-04] MEDS: Insulin NovoLIN Regular Correctional Sugar Inj SQ SCH ×4 (08:54→20:09)
[2018-10-04] MEDS ORDERED: Heparin/NS PF Inj 1,000 ML ONE (10:43)
[2018-10-04] MEDS ORDERED: Heparin 10,000 UNITS/10 ML Vial (for IV use) ONE (10:44)
[2018-10-04] MEDS ORDERED: Lidocaine PF 1% Inj 30 ML Vial ONE (10:44)
[2018-10-04] MEDS ORDERED: fentaNYL Citrate Inj 100 MCG/2 ML Ampul ONE (10:44)
--- NOTE | 2018-10-04 11:35 | CATHPROC ---
[facility] HIS Report Study Information Study Number Admission Scheduled Start Study Start [id number] Oct 02 2018 1:52AM 10/04/2018 Oct 04 2018 10:20AM [place] Service Cardiac Catheterization Admit Source Facility Department Other [facility] - Transformer Assembler Physician and Clinical Staff Initial Long Simmons Chemical Dependency Counselor Blas Basurto,CARLOS A Chemical Dependency Counselor Mayra Betancur,CARLOS A Recorder Federica Collazo ,RT(R) Scrub Kateryna Mujica,JOSE ENRIQUE TECH2 Procedures Performed Procedure Location (Site) Vessel Name Coronary Angiograms LCA Left Coronary Coronary Angiograms RCA Right Coronary L Heart Cath LV Gram-hand inj. LV LV Ventricle Equipment Time Head Worker Description Size Mfg Part Number Used/Scraped TRANSDUCER, TRUWAVE [id number] 10:55 BAZAN TAFOYA * Used W/STOCKCOCK *[id number] *[id number] 10:55 MALLINCKRODT SYRINGE, ANGIOMAT 150ML 150ML *[id number] Used 2S MEDICAL CONCEPT DRAPE, RADIAL FEMORAL FULL 10:55 * [id number] *[id number] Used DEVELOPMENT BODY [id number] 10:55 Flocations BLANKET,WARM AIR CCL * Used *[id number] 10:55 Flocations PACK, CCL CUSTOM * Used *[id number] 10:55 Flocations SUPPORT, ARTERIAL ADULT 29799 *[id number] Used [id number] 10:55 Powderhook PACER PEN, SKIN DUAL W/ RULER * Used *[id number] 11:13 MEDTRONIC MPA 1 DXTERITY CATHETER FR 6 [id number] Used BAND, RADIAL COMPRESSION TR [id number] 11:18 [employer]Mob 24CM Used SHORT 24 *[id number] SHEATH, FR6 RADIAL PRELUDE 10:55 [employer]ob FR 6 [id number] Used EASE 11CM [id number] 10:55 [employer] WIRE, EXCHANGE 260CM 3MMJ 260CM Used *[id number] 10:55 NAMIC MANIFOLD, 4 PORT * Used *[id number] 10:55 NYCOMED OMNIPAQUE, 350 MG, 150ML 150ML [id number] Used CATHETER, FR5 OPTITORQUE [id number] 11:08 [employer] MEDICAL FR 5 Used RADIAL TIG 4.0 *[id number] History: Current Medications Medication Dosage/Unit Route Frequency Last Date/Time Taken ASA Statins (any) History: Allergies Allergy Reaction No Known Allergies History: Risk Factors Family History of Hypertension Dyslipidemia Previous LA Previous Heart Failure Premature CAD Yes Yes Yes No No Prior Valve Prior PCI Prior PCIDate Prior CABG Surgery No Yes 07/13/2018 No Cerebrovascular Peripheral Artery Chronic Lung On Dialysis Diabetes Diabetes Therapy Disease Disease Disease No No No No Yes Oral Labs Hgb (g/dl) Hct (%) WBC (l/cumm) Platelets (thousands) 11.60-17.00 35.00-51.00 4.00-11.00 150.00-450.00 10.8 33.4 5.7 206 Glucose (mg/dl) BUN (mg/dl) Creatinine (mg/dl) BUN:Creatinine (1:x) 74.00-106.00 7.00-18.00 0.50-1.30 10.00-20.00 117 14 0.9 15.6 Na (meq/l) K (meq/l) 136.00-145.00 3.50-5.10 138 3.8 INR (PTT:PT) 0.90-1.10 1.1 Troponin I (ng/ml) CPK-MB (ng/ML) 0.02-0.05 0.50-3.60 0.02 Not Drawn Medication Medication Total Dose (Bolus/Oral) Medication Total Dosage/Unit 1% XYLOCAINE 20 mL FENTANYL 50 mcg RADIAL COCKTAIL 5 mL (Bolus) VERSED 2 mg Medications (Bolus/Oral) Medication Time Given Dosage/Unit Administered By Reason 10/04/2018 11:03:13 VERSED 2 mg Mayra Betancur AM 2 mg VERSED given in lab by Mayra Betancur, CARLOS A in Right Antecubital via Peripheral IV. Ordered by Long Messina. 10/04/2018 11:04:15 FENTANYL 50 mcg Long Singh AM 50 mcg FENTANYL given in lab by Long Singh in Right Antecubital via Peripheral IV. 10/04/2018 11:04:57 1% XYLOCAINE 20 mL Mayra Betancur AM 20 mL 1% XYLOCAINE given in lab by Mayra Betancur, CARLOS A via Subcutaneous. Ordered by Long Singh. 10/04/2018 11:06:38 Ntg 200mcg Verapamil 2.5mg Heparin RADIAL COCKTAIL 5 mL (Bolus) Samantha, Long AM 2500U 5 mL (Bolus) RADIAL COCKTAIL given in lab by Long Singh in Right Radial via Radial. Using [Solution Name]. Ordered by Long Singh. Reason: Ntg 200mcg Verapamil 2.5mg Heparin 2500U. Medication (Drip) Medication Time Given Dosage/Unit Concentration/Unit Diluent (ml) Solution 10/04/2018 10:41:53 IV Solutions 50 mL (IV) NaCl .9 AM Patient arrived on IV Solutions via Peripheral IV. Pump/Drip Flow using NaCl .9. Initial Case Assessment Cardiovascular HR NIBP Chest Pain 82 135/87 0 Edema Present Skin color Skin None Normal Warm Dry Circulatory - Right Pulses Dorsalis Pedis Femoral Radial 1 1 1 Scale (0,1,2,3,4,d) Circulatory - Left Pulses Dorsalis Pedis Femoral Radial 1 1 Scale (0,1,2,3,4,d) Neurological State Oriented to time-place- Alert Moves all extremities person Respiration - General Respiration Rate SpO2 (%) (B/min) 11 100 Final Case Assessment Cardiovascular HR NIBP Chest Pain 70 119/77 0 Edema Present Skin color Skin None Normal Warm Dry Circulatory - Right Pulses Dorsalis Pedis Femoral Radial 1 1 1 Scale (0,1,2,3,4,d) Circulatory - Left Pulses Dorsalis Pedis Femoral Radial 1 1 Scale (0,1,2,3,4,d) Neurological State Oriented to time-place- Alert Moves all extremities person Respiration - General Respiration Rate SpO2 (%) (B/min) 11 97 Chronological Log Time Study Chronological Log 10:30:27 Patient arrived via Bed. 10:30:33 Patient Name, D.O.B, / Armband Verified By R.N. Vitals capture started with the following parameters, Patient=Adult, Interval=5 min, Initial Pr hfwdcq=886 mmHg, 10:39:21 Deflation Rate=5 mmHg, Cuff placed on Left Arm 10:39:54 HR=77 bpm, GSLP=654/87 mmhg, SpO2=99.0 %, Resp=14 B/min 10:41:42 Consent signed by the physician and the patient and verified by the Transformer Assembler staff. 10:41:43 Pre-op and post- op instructions given; patient acknowledges understanding of instructions. 10:41:43 Verbal Stimulation=2 Physical Stimulation=2 Airway=2 Respiration=2 TOTAL=8. (0=absent, 1=li mited, 2=present) 10:41:45 Allens test performed on the right radial and ulnar artery. positive 10:41:46 Immediate Presedation assesment performed by physician. 10:41:48 Patient has been NPO for More than 6Hrs. 10:41:49 Skin Breakdown- bruising right groin 10:41:49 Patient Warmer Placed on the Table. 10:41:52 Dariela Prominences Protected 10:41:53 A # 20 IV was noted in the Antecubital (right). Grade = 0 10:41:53 Patient arrived on IV Solutions via Peripheral IV. Pump/Drip Flow using NaCl .9. 10:41:55 History and physical on the chart or being dictated. Assessment: Initial Case, HR=82 BPM, TJFE=275/87 mmhg, Chest Pain=0, Edema=None, Color=Normal, Skin = Warm, Dry Right Pulses: Rommel Ped=1, Femoral=1, Radial=1 10:41:56 Left Pulses: Rommel Ped=1, Femoral=1 Neurological: State=Alert, Ox3, DOLL Respiration: Resp=11 B/min, DdK2=558 % 10:43:24 Reference ECG taken 10:44:57 HR=83 bpm, SZIO=832/89 mmhg, InY6=678.0 %, Resp=6 B/min, Pain=0, Harpreet=10, Elizabeth=2 10:49:56 HR=76 bpm, NRDA=975/88 mmhg, Resp=19 B/min 10:49:59 Right Radial and groin(s) prepped with 2% chlorhexidine, and draped after a 3 min. waiting time. 10:54:55 HR=74 bpm, HEUL=246/85 mmhg, SpO2=99.0 %, Resp=10 B/min, Pain=0, Harpreet=10, Elizabeth=2 10:54:57 MD paged 10:55:46 MD responded 10:56:47 Pressure channel 1 zeroed. 10:58:38 MD arrived. 10:59:56 HR=84 bpm, CNCO=104/88 mmhg, SpO2=99 %, Resp=12 B/min, Pain=0, Harpreet=10, Elizabeth=2 Time Out. Correct patient, correct procedure, correct physician, labs, allergies, and equipment verified with laborer cement gun placing 11:03:06 team present. Fire risk assesment completed (see hard stop sheet for coding). Time Out Conc urred by MD and individual staff in procedure. 11:03:13 2 mg VERSED given in lab by Mayra Betancur, RN in Right Antecubital via Peripheral IV. Ord ered by Long Singh. 11:03:31 Case Start 11:04:15 50 mcg FENTANYL given in lab by Long Singh in Right Antecubital via Peripheral IV. 11:04:57 HR=76 bpm, HKQX=396/81 mmhg, BdM3=118.0 %, Resp=12 B/min, Pain=0, Harpreet=10, Elizabeth=2 11:04:57 20 mL 1% XYLOCAINE given in lab by Mayra Betancur, RN via Subcutaneous. Ordered by Long Singh. 11:06:02 Access site was Right Radial Artery . 11:06:36 A sheath was advanced into the Fem Art (right) using the ~TECHNIQUE~ technique. 5 mL (Bolus) RADIAL COCKTAIL given in lab by Long Singh in Right Radial via Radial. Using [So lution Name]. Ordered 11:06:38 by Long Singh. Reason: Ntg 200mcg Verapamil 2.5mg Heparin 2500U. A CATHETER, FR5 OPTITORQUE RADIAL TIG 4.0 FR 5 was advanced over a wire. OMNIPAQUE, 350 MG, 150 ML 150ML 11:07:26 was used for injections. Recorded Pressure: Ao, HR=77, Condition=Condition 1 11:07:56 (Aorta) Ao 118/74/95 11:08:37 The LCA was injected and visualized at various angles. OMNIPAQUE, 350 MG, 150ML 150ML used . 11:10:00 HR=84 bpm, KBAU=521/71 mmhg, SpO2=98.0 %, Resp=12 B/min, Pain=0, Harpreet=10, Elizabeth=2 11:10:37 The RCA was injected and visualized at various angles. OMNIPAQUE, 350 MG, 150ML 150ML used . 11:11:40 After removing the current catheter a JL 3.5 INFINITI CATHETER FR 6 was advanced over a wir e. 11:12:17 The LCA was injected and visualized at various angles. OMNIPAQUE, 350 MG, 150ML 150ML used . After removing the current catheter a MPA 1 DXTERITY CATHETER FR 6 was advanced over a WIRE, EX CHANGE 260CM 11:14:03 3MMJ 260CM. 11:14:55 HR=80 bpm, YKBP=894/78 mmhg, SpO2=97 %, Resp=12 B/min, Pain=0, Harpreet=10, Elizabeth=2 Recorded Pressure: LV, HR=80, Condition=Condition 1 11:15:56 (Left Ventricle) LV 126/3/13 11:16:03 The LV was manually injected with 10 cc's and visualized. OMNIPAQUE, 350 MG, 150ML 150ML us ed. Recorded Pressure: LV, Ao, HR=77, Condition=Condition 1 11:16:13 (Left Ventricle) LV 126/2/12, (Aorta) Ao 126/68/94 11:16:24 Catheter was removed 11:18:47 Case End (Physician broke scrub) 11:19:58 HR=74 bpm, DZFG=851/77 mmhg, SpO2=98.0 %, Resp=12 B/min, Pain=0, Hrapreet=10, Elizabeth=2 11:23:01 Catheter(s) removed without difficulty Radial Compression Device Used. 12 mLs of air placed in BAND, RADIAL COMPRESSION TR SHORT 24 2 4CM. Affected 11:23:05 hand 99 % O2 saturation. 11:23:21 No case complications noted. 11:23:22 Cine recording checked. 11:23:25 Bedside Report will be given. 11:23:29 A Left Heart Cath was performed. 11:24:57 HR=70 bpm, OMQG=743/77 mmhg, SpO2=97.0 %, Resp=11 B/min, Pain=0, Harpreet=10, Elizabeth=2 11:25:53 Vitals capture stopped. Assessment: Final Case, HR=70 BPM, WSWU=204/77 mmhg, Chest Pain=0, Edema=None, Color=Normal, S kin = Warm, Dry Right Pulses: Rommel Ped=1, Femoral=1, Radial=1 11:25:57 Left Pulses: Rommel Ped=1, Femoral=1 Neurological: State=Alert, Ox3, DOLL Respiration: Resp=11 B/min, SpO2=97 % 11:31:12 Patient moved to stretcher 11:35:14 Clinical correlaton risk stratification. End Study - Contrast Media Used In Study Contrast Total Opened (mL) Total Used (mL) Total Wasted (mL) Omnipaque 350 65 65 0 End Study - Maximum Contrast Load Max Contrast Load (mL) 399.5 End Study - Radiation Exposure Fluoro Time (minutes) 3.3 End Study - Patient Disposition Complications Transferred To No Telemetry Bed
[2018-10-04] MEDS ORDERED: Sod Chloride 0.9% Inj 1,000 ML IV.CONT SCH (11:45)
--- NOTE | 2018-10-04 11:54 | MA ---
cc: Long Singh MD DATE: 10/04/2018 PROCEDURE: Left heart catheterization, selective coronary angiography, left ventriculography. PROCEDURE NOTES: The patient was brought to the cardiac catheterization laboratory in a fasting state after having signed informed consent. The right radial region was prepped and draped as per policy and anesthetized with 1% lidocaine. Arterial access was obtained via the right radial artery and a 6-[place] sheath placed. Coronary arteriography was performed using a [place] catheter. Left ventriculography was done using a multipurpose catheter. There were no apparent immediate complications. A radial artery compression band was applied to his right wrist at the end of the case to achieve good hemostasis. HEMODYNAMIC DATA: Left ventricle 120 with an end diastolic pressure of 15. Aorta 120/60 with a mean of 75. There was no significant transvalvular aortic gradient on pullback of the pigtail catheter. CORONARY ARTERIOGRAPHY: The left main is normal. The left anterior descending is diffusely diseased. There is a stent in the mid portion and the stent is widely patent. The ostial to proximal LAD is diffusely diseased. It is somewhat difficult to quantify the degree of stenosis, but likely approaches 50%. In the mid LAD right before the stent, there is 25% stenosis. The distal LAD has minimal luminal irregularities. The LAD gives rise to a tiny diagonal from its mid portion,and it is subtotally occluded at its origin. There is a large ramus intermedius, which may have up to 30% ostial stenosis. The rest of the vessel has minimal luminal irregularities. The left circumflex is a small vessel giving rise to two obtuse marginals in close succession. Stents are evident in the proximal portion of these obtuse marginals, and the stents are widely patent. There is diffuse up to 10-15% stenosis in the proximal left circumflex. The right coronary artery is a very large dominant vessel which is also diffusely diseased. There is likely up to 30% very proximal stenosis, and diffuse 10% disease of the proximal to mid vessel. In the very, very distal right coronary, there is a 90% stenosis where the vessel is small in caliber. LEFT VENTRICULOGRAPHY: Contrast injection of the left ventricle reveals no segmental wall motion abnormalities. Ejection fraction is estimated at 60%. CONCLUSIONS: 1. Widely patent, recently placed (in [place], [place]) stents in the first and second obtuse marginals and in the mid left anterior descending. 2. Mild to moderate 3-vessel coronary artery disease with severe lesions only in the very, very distal right coronary where the vessel is small and in a tiny diagonal. 3. Normal left ventricular function with estimated ejection fraction of 60%. MD OLIMPIA Batres/gonzalez , 11:39 AM , 11:47 AM MTDD
--- NOTE | 2018-10-04 12:11 | P.PNCA ---
Subjective Interval history: No CP, dyspnea, belching, dizziness, palpitations. Medications and Allergies Active Medications: Active Medications Acetaminophen (Tylenol) 500 mg PO Q6H PRN PRN Reason: pain scale 1-5 Hydrocodone Bitart/Acetaminophen ([place] 7.5/325) 1 tab PO Q6H PRN PRN Reason: pain scale 6-10 Albuterol (Duoneb Neb (Prn)) 1 ampul NEB Q4HR NEB PRN PRN Reason: SHORTNESS OF BREATH/WHEEZING Alprazolam (Xanax) 0.25 mg PO Q6H PRN PRN Reason: ANXIETY Aspirin (Aspirin Chew) 81 mg PO DAILY [facility] Last Admin: 10/04/18 08:52 Dose: 81 mg Atorvastatin Calcium (Lipitor) 20 mg PO DAILY [facility] Last Admin: 10/04/18 08:52 Dose: 20 mg Heparin Sodium (Porcine) (Heparin Inj) 2,500 units IV.PUSH UNSCH PRN PRN Reason: aPTT 25-39 Last Admin: 10/03/18 01:23 Dose: 2,500 units Heparin Sodium (Porcine) (Heparin Inj) 5,000 units IV.PUSH UNSCH PRN PRN Reason: aPTT < 25 Sodium Chloride (Ns Inj) 1,000 mls @ 100 mls/hr IV.CONT .Q10H [facility] Last Admin: 10/04/18 05:51 Dose: 100 mls/hr Sodium Chloride (Ns Inj) 1,000 mls @ 100 mls/hr IV.CONT .Q10H [facility] Insulin Human Regular (Novolin R Correctional Sugar Inj) 0 units SQ ACHS [facility]; Protocol Last Admin: 10/04/18 08:54 Dose: Not Given Isosorbide Mononitrate (Imdur) 30 mg PO DAILY@0700 [facility] Metoprolol Tartrate (Lopressor) 50 mg PO BID [facility] Miscellaneous Medication ([facility]) 1 each OTHER ONCE ONE Stop: 10/04/18 11:40 Pantoprazole Sodium (Protonix) 40 mg PO DAILY [facility] Last Admin: 10/04/18 08:52 Dose: 40 mg Sodium Chloride (Ns Flush) 2 ml IV.FLUSH BID [facility] Last Admin: 10/04/18 08:54 Dose: 2 ml Sodium Chloride (Ns Flush) 2 ml IV.FLUSH PRN PRN PRN Reason: FLUSH AFTER USING IV ACCESS Sodium Chloride (Ns Flush) 2 ml IV.FLUSH BID [facility] Sodium Chloride (Ns Flush) 2 ml IV.FLUSH PRN PRN PRN Reason: FLUSH AFTER USING IV ACCESS Ticagrelor (Brilinta) 90 mg PO BID [facility] Last Admin: 10/04/18 08:54 Dose: 90 mg Allergies Allergy/AdvReac Type Severity Reaction Status Date / Time No Known Allergies Allergy Verified 10/01/18 23:43 Home Medications Medication Instructions Recorded Confirmed Type aspirin 81 mg PO DAILY 10/01/18 10/01/18 History atorvastatin 20 mg PO DAILY 10/01/18 10/01/18 History metformin 2,000 mg PO DAILY 10/01/18 10/01/18 History ticagrelor [Brilinta] 90 mg PO BID 10/01/18 10/01/18 History Physical Exam Vital signs: Vital Signs 10/03/18 16:00 10/03/18 20:00 10/03/18 20:59 Temperature 97.9 F 98 F Pulse Rate 61 63 74 Respiratory Rate 17 14 Blood Pressure 102/68 100/63 Pulse Oximetry 100 99 10/04/18 00:00 10/04/18 04:00 10/04/18 08:00 Temperature 98.8 F 97.9 F 98.2 F Pulse Rate 54 L 62 72 Respiratory Rate 14 14 17 Blood Pressure 108/62 114/70 120/76 Pulse Oximetry 97 99 99 10/04/18 11:40 Temperature Pulse Rate Respiratory Rate Blood Pressure Pulse Oximetry 100 Intake & Output 10/03/18 10/04/18 10/04/18 18:59 06:59 18:59 Intake Total 660 / 660 138 / 138 Output Total 1400 / 1400 Balance -740 / -740 138 / 138 Weight 71.9 kg Intake: IV 120 / 120 138 / 138 Heparin/D5W 25,000 U/250 mL 25, 120 / 120 138 / 138 000 unit In 250 ml @ 900 UNITS/ HR 9 mls/hr IV.CONT TITRATE PRN Rx#:[id number] Oral 540 / 540 Output: Urine 1400 / 1400 Other: # Voids 2 # Bowel Movements 0 - Constitutional no acute distress - Routine Neck Exam Absent: JVD - Routine Respiratory Exam Present: CTA bilaterally - Routine Cardiovascular Exam Present: RRR, S1, S2. Absent: murmur, gallop - Routine Abdominal Exam Present: soft, normoactive bowel sounds. Absent: tenderness, organomegaly - Routine Extremities Exam Absent: cyanosis, clubbing, edema Results 10/04/18 07:50 10/03/18 08:20 Cardiac Enzymes 10/03/18 Range/Units 08:20 Troponin I Less than 0.02 L (0.02-0.05) ng/mL Coagulation 10/02/18 10/02/18 10/03/18 Range/Units 16:15 23:47 08:20 APTT 40.8 H D 37.4 H 50.3 H D (23.4-31.7) sec 10/04/18 Range/Units 07:50 APTT 41.1 H (23.4-31.7) sec CBC 10/03/18 10/04/18 Range/Units 08:20 07:50 WBC 7.1 5.7 (4.0-11.0) th/mm3 RBC 4.15 L 3.73 L (4.50-5.90) mil/mm3 Hgb 12.0 L 10.8 L (13.0-17.0) gm/dL Hct 36.6 L 33.4 L (39.0-51.0) % Plt Count 223 206 (150-450) th/mm3 Comprehensive Metabolic Panel 10/03/18 Range/Units 08:20 Sodium 138 (136-145) meq/L Potassium 3.8 (3.5-5.1) meq/L Chloride 105 (98-107) meq/L Carbon Dioxide 25.5 (21.0-32.0) meq/L BUN 14 (7-18) mg/dL Creatinine 0.96 (0.60-1.30) mg/dL Calcium 9.0 (8.5-10.1) mg/dL Intake and Output 10/03/18 10/04/18 10/04/18 22:59 06:59 14:59 Intake Total 540 / 540 138 / 138 Output Total 1400 / 1400 Balance -860 / -860 138 / 138 Intake: IV 138 / 138 Heparin/D5W 25,000 U/250 mL 25, 138 / 138 000 unit In 250 ml @ 900 UNITS/ HR 9 mls/hr IV.CONT TITRATE PRN Rx#:[id number] Oral 540 / 540 Output: Urine 1400 / 1400 Other: # Voids 2 # Bowel Movements 0 Weight 71.9 kg Assessment and Plan - Assessment (1) CAD (coronary artery disease) Code(s): I25.10 - Atherosclerotic heart disease of [place] coronary artery without angina pectoris Status: Chronic Plan: Clinically stable. Cath shows no high grade CAD except in tiny areas of very distal RCA and diagonal. EF normal. Stents placed this year in 2 obtuse marginals and in mid LAD widely patent. RECOMMEND medical therapy of his CAD, change to oral nitrate, continue metoprolol/aspirin/Brilinta. 24 hour more observation. (2) Ventricular tachycardia (paroxysmal) Code(s): I47.2 - Ventricular tachycardia Status: Acute Plan: No further wide complex tachycardia. Morphology of the jin suggestive of aberrantly conducted atrial tachycardia (begins with long-short R-R interval, initial portion of QRS deflection similar to his intrinsic sinus beats, possible preceding atrial activity). EF by cath today normal. Recommend increase metoprolol to 50 mg bid, 24 more hours of monitoring. (3) Hyperlipidemia Code(s): E78.5 - Hyperlipidemia, unspecified Status: Chronic Plan: To follow lipid profiles as outpatient. Given diffuse CAD seen on cath, recommend double atorvastatin to 40 mg qd. (4) Paroxysmal supraventricular tachycardia Code(s): I47.1 - Supraventricular tachycardia Status: Chronic Plan: Patient s/p ablation. Continue to monitor. - Plan Code Status: full code Discussed Condition With: patient and family, at length (1) CAD (coronary artery disease) Qualifiers: Coronary Disease-Associated Artery/Lesion type: [place] artery [place] vs. transplanted heart: [place] heart Associated angina: with unspecified angina Qualified Code(s): I25.119 - Atherosclerotic heart disease of [place] coronary artery with unspecified angina pectoris (3) Hyperlipidemia Qualifiers: Hyperlipidemia type: unspecified Qualified Code(s): E78.5 - Hyperlipidemia, unspecified
--- NOTE | 2018-10-04 16:15 | P.PNIM ---
Subjective Interval history: Patient seen after heart cath. States he has a lot of questions regarding his heart cath findings. He denies any chest pain. No further episodes of burping. No SOB. Physical Exam Vital signs: Last Vital Signs Temp 98.2 F 10/04/18 08:00 Pulse 72 10/04/18 08:00 Resp 17 10/04/18 08:00 BP 120/76 10/04/18 08:00 Pulse Ox 100 10/04/18 11:40 Intake & Output 10/02/18 10/03/18 10/04/18 10/05/18 06:59 06:59 06:59 06:59 Intake Total 0 / 0 550 / 550 798 / 798 Output Total 603 / 603 1400 / 1400 Balance 0 / 0 -53 / -53 -602 / -602 Weight 71.7 kg 72.5 kg 71.9 kg Narrative: GENERAL: Well-nourished, well-developed adult male in no obvious distress. CARDIOVASCULAR: Regular rate and rhythm. RESPIRATORY: No accessory muscle use. Clear to auscultation. Breath sounds equal bilaterally. GASTROINTESTINAL: Abdomen soft, non-tender, non-distended. Positive bowel sounds. MUSCULOSKELETAL: Extremities without clubbing, cyanosis, or edema. No obvious deformities. NEUROLOGICAL: Awake and alert.Motor grossly within normal limits. Normal speech. PSYCHIATRIC: Appropriate mood and affect; insight and judgment good. Results Labs CBC & Chem 7: 10/04/18 07:50 10/03/18 08:20 Assessment and Plan (1) CAD (coronary artery disease): Code(s): I25.10 - Atherosclerotic heart disease of [place] coronary artery without angina pectoris Status: Chronic (2) Ventricular tachycardia (paroxysmal): Code(s): I47.2 - Ventricular tachycardia Status: Acute (3) Hyperlipidemia: Code(s): E78.5 - Hyperlipidemia, unspecified Status: Chronic (4) Paroxysmal supraventricular tachycardia: Code(s): I47.1 - Supraventricular tachycardia Status: Chronic Plan 48-year-old male with a history of diabetes, hyperlipidemia, recent ablation (complicated by bleeding and fever), and CAD with 3 stents placed who presents to the emergency room with a complaint of belching and burping. He reports that these are similar to symptoms that he had prior to his last cardiac cath. CAD/unstable angina/ventricular tachycardia -Cardiology following Dr. Singh. - Patient underwent heart cath which showed shows "no high grade CAD except in tiny areas of very distal RCA and diagonal. EF normal. Stents placed this year in 2 obtuse marginals and in mid LAD widely patent". - Cardiology recommended medical therapy with oral nitrate. Continue metoprolol at increased dose. Continue Aspirin and Brilinta. Atorvastatin dose increased. - He is anxious about his current condition and his questions were answered. He is anxious to discuss his overall cardiac prognosis with Cardiology. - Xanax as need for anxiety. Hyperlipidemia; chronic -Continue Atorvastatin at higher dose per Cardiology recs. Diabetes; chronic -Sliding scale coverage Discharge planning: Likely home tomorrow after clearance by Cardiology. He is anxious to talk to Auditor In Charge prior to discharge. Progress Note: Quality VTE Deep Vein Thrombosis/Pulmonary Embolism Present on Admission: No _ (1) CAD (coronary artery disease) Qualifiers: Associated angina: with unspecified angina Coronary Disease-Associated Artery /Lesion type: [place] artery [place] vs. transplanted heart: [place] heart Qualified Code(s): I25.119 - Atherosclerotic heart disease of [place] coronary artery with unspecified angina pectoris (2) Hyperlipidemia Qualifiers: Hyperlipidemia type: unspecified Qualified Code(s): E78.5 - Hyperlipidemia, unspecified
[2018-10-05 00:50] VITALS: O2SAT 97
[2018-10-05] MEDS: Sod Chloride 0.9% Inj 1,000 ML IV.CONT SCH (01:07)
[2018-10-05 06:02] LABS: Hematocrit 34.1 % (39.0-51.0); Hemoglobin 10.9 gm/dL (13.0-17.0); Mean Corpuscular Hemoglobin 28.4 pg (27.0-34.0); Mean Corpuscular Volume 88.9 fL (80.0-100.0); Platelet Count 187 th/mm3 (150-450); Red Blood Count 3.84 mil/mm3 (4.50-5.90); Red Cell Distribution Width 15.3 % (11.6-17.2); White Blood Count 8.1 th/mm3 (4.0-11.0)
[2018-10-05 06:29] LABS: Calcium 8.6 mg/dL (8.5-10.1); Carbon Dioxide 26.4 meq/L (21.0-32.0); Potassium 3.7 meq/L (3.5-5.1)
[2018-10-05] MEDS ORDERED: Isosorbide Mononitrate 30 MG ER 24HR Tablet (Imdur) PO SCH (07:00)
[2018-10-05] MEDS: Metoprolol Tartrate 25 MG Tablet PO SCH ×2 (08:08→08:31)
--- NOTE | 2018-10-05 08:46 | P.PNCA ---
Subjective Interval history: No CP, belching, dyspnea, dizziness, palpitations. Medications and Allergies Active Medications: Active Medications Acetaminophen (Tylenol) 500 mg PO Q6H PRN PRN Reason: pain scale 1-5 Hydrocodone Bitart/Acetaminophen ([place] 7.5/325) 1 tab PO Q6H PRN PRN Reason: pain scale 6-10 Albuterol (Duoneb Neb (Prn)) 1 ampul NEB Q4HR NEB PRN PRN Reason: SHORTNESS OF BREATH/WHEEZING Alprazolam (Xanax) 0.25 mg PO Q6H PRN PRN Reason: ANXIETY Aspirin (Aspirin Chew) 81 mg PO DAILY [facility] Last Admin: 10/05/18 08:07 Dose: 81 mg Atorvastatin Calcium (Lipitor) 40 mg PO DAILY [facility] Last Admin: 10/05/18 08:08 Dose: 40 mg Sodium Chloride (Ns Inj) 1,000 mls @ 100 mls/hr IV.CONT .Q10H [facility] Last Admin: 10/05/18 01:07 Dose: Not Given Sodium Chloride (Ns Inj) 1,000 mls @ 100 mls/hr IV.CONT .Q10H [facility] Insulin Human Regular (Novolin R Correctional Sugar Inj) 0 units SQ ACHS [facility]; Protocol Last Admin: 10/04/18 20:09 Dose: Not Given Isosorbide Mononitrate (Imdur) 30 mg PO DAILY@0700 [facility] Last Admin: 10/05/18 06:26 Dose: 30 mg Pantoprazole Sodium (Protonix) 40 mg PO DAILY [facility] Last Admin: 10/05/18 08:07 Dose: 40 mg Sodium Chloride (Ns Flush) 2 ml IV.FLUSH BID [facility] Last Admin: 10/04/18 20:30 Dose: 2 ml Sodium Chloride (Ns Flush) 2 ml IV.FLUSH PRN PRN PRN Reason: FLUSH AFTER USING IV ACCESS Ticagrelor (Brilinta) 90 mg PO BID [facility] Last Admin: 10/05/18 08:07 Dose: 90 mg Allergies Allergy/AdvReac Type Severity Reaction Status Date / Time No Known Allergies Allergy Verified 10/01/18 23:43 Home Medications Medication Instructions Recorded Confirmed Type aspirin 81 mg PO DAILY 10/01/18 10/01/18 History atorvastatin 20 mg PO DAILY 10/01/18 10/01/18 History metformin 2,000 mg PO DAILY 10/01/18 10/01/18 History ticagrelor [Brilinta] 90 mg PO BID 10/01/18 10/01/18 History Physical Exam Vital signs: Vital Signs 10/04/18 11:40 10/04/18 16:00 10/04/18 20:00 Temperature 98.1 F Pulse Rate 67 73 Respiratory Rate 17 Blood Pressure 122/77 Pulse Oximetry 100 100 10/05/18 00:00 10/05/18 04:00 Temperature 98.2 F 98.6 F Pulse Rate 58 L 61 Respiratory Rate 18 18 Blood Pressure 128/74 111/60 Pulse Oximetry 97 97 Intake & Output 10/04/18 10/05/18 10/05/18 18:59 06:59 18:59 Intake Total 400 / 400 Output Total 600 / 600 Balance -200 / -200 Weight 72 kg Intake: IV 400 / 400 NS Inj 1,000 ML @ 100 mls/hr IV 400 / 400 .CONT .Q10H [facility] Rx#:[id number] Output: Urine 600 / 600 Other: # Voids 2 # Bowel Movements 0 - Constitutional no acute distress - Routine Neck Exam Absent: JVD - Routine Respiratory Exam Present: CTA bilaterally - Routine Cardiovascular Exam Present: RRR, S1, S2. Absent: murmur, gallop - Routine Abdominal Exam Present: soft, normoactive bowel sounds. Absent: tenderness, organomegaly - Routine Extremities Exam Absent: cyanosis, clubbing, edema Comments: Right radial arteriotomy sight stable, no hematoma. Normal radial pulse. Results 10/05/18 04:39 10/05/18 04:39 Cardiac Enzymes 10/03/18 Range/Units 08:20 Troponin I Less than 0.02 L (0.02-0.05) ng/mL Coagulation 10/03/18 10/04/18 10/05/18 Range/Units 08:20 07:50 04:39 APTT 50.3 H D 41.1 H 25.2 D (23.4-31.7) sec CBC 10/04/18 10/05/18 Range/Units 07:50 04:39 WBC 5.7 8.1 (4.0-11.0) th/mm3 RBC 3.73 L 3.84 L (4.50-5.90) mil/mm3 Hgb 10.8 L 10.9 L (13.0-17.0) gm/dL Hct 33.4 L 34.1 L (39.0-51.0) % Plt Count 206 187 (150-450) th/mm3 Comprehensive Metabolic Panel 10/03/18 10/05/18 Range/Units 08:20 04:39 Sodium 138 143 (136-145) meq/L Potassium 3.8 3.7 (3.5-5.1) meq/L Chloride 105 107 (98-107) meq/L Carbon Dioxide 25.5 26.4 (21.0-32.0) meq/L BUN 14 12 (7-18) mg/dL Creatinine 0.96 0.94 (0.60-1.30) mg/dL Calcium 9.0 8.6 (8.5-10.1) mg/dL Intake and Output 10/04/18 10/05/18 10/05/18 22:59 06:59 14:59 Intake Total 400 / 400 Output Total 600 / 600 Balance -200 / -200 Intake: IV 400 / 400 NS Inj 1,000 ML @ 100 mls/hr IV 400 / 400 .CONT .Q10H [facility] Rx#:[id number] Output: Urine 600 / 600 Other: # Voids 2 # Bowel Movements 0 Weight 72 kg Assessment and Plan - Assessment (1) CAD (coronary artery disease) Code(s): I25.10 - Atherosclerotic heart disease of [place] coronary artery without angina pectoris Status: Chronic Plan: Clinically stable. Cath shows no high grade CAD except in tiny areas of very distal RCA and diagonal. EF normal. Stents placed this year in 2 obtuse marginals and in mid LAD widely patent. RECOMMEND medical therapy of his CAD, continue metoprolol/Imdur/aspirin/ Brilinta. OK to discharge home today. (2) Ventricular tachycardia (paroxysmal) Code(s): I47.2 - Ventricular tachycardia Status: Acute Plan: No further wide complex tachycardia. Morphology of the jin suggestive of aberrantly conducted atrial tachycardia (begins with long-short R-R interval, initial portion of QRS deflection similar to his intrinsic sinus beats, possible preceding atrial activity). EF by cath normal. Recommend continue metoprolol, decrease dose to 25 mg bid as BP relatively low (3) Hyperlipidemia Code(s): E78.5 - Hyperlipidemia, unspecified Status: Chronic Plan: To follow lipid profiles as outpatient. Given diffuse CAD seen on cath, recommend double atorvastatin to 40 mg qd. (4) Paroxysmal supraventricular tachycardia Code(s): I47.1 - Supraventricular tachycardia Status: Chronic Plan: Patient s/p ablation. Continue to monitor. - Plan Code Status: full code Discussed Condition With: patient (1) CAD (coronary artery disease) Qualifiers: Coronary Disease-Associated Artery/Lesion type: [place]ebbins artery [place] vs. transplanted heart: stebbins heart Associated angina: with unspecified angina Qualified Code(s): I25.119 - Atherosclerotic heart disease of [place] coronary artery with unspecified angina pectoris (3) Hyperlipidemia Qualifiers: Hyperlipidemia type: unspecified Qualified Code(s): E78.5 - Hyperlipidemia, unspecified
[2018-10-05 09:05] VITALS: BP 105/67; RESP 14; TEMP 98
--- NOTE | 2018-10-05 09:05 | P.DS ---
DS: Providers Date of admission: 10/02/18 01:52 Primary care physician: Blaire Mascorro MD Consults: 10/02/18 10:01 Consult to Cardiology Routine Consulting Provider: Eliecer Valdez Does the patient have a Rf Technician who follows them?: Yes Preferred Carding Machine Operator:: Long Singh Reason for Consultation: ABNORMAL STRESS TEST WITH HX CAD. DR VALDEZ IS AWARE OF THIS CONSULT. Notified:: Service Spoke with:: Mary Date Notified:: 10/02/18 Time Notified:: 10:07 Ordering Provider: [facility] 10/02/18 15:59 HUB Only Consult Order Routine Consulting Provider: [facility],Insurance Brief History from admission: This is a 48-year-old male that presents to ED with history of CAD with 3 stents placed July 02, 2018 while he was in [place] that presents to ED to be evaluated for her symptoms which worried him, he thought that it may have been related to his heart as it was before. States that in June he was out of town on business when he was having a lot of burping and belching. He went to an ER and had some studies done including a CT coronary which showed a lot of calcium buildup and the decision was then made to do a cardiac catheterization. He states he was found to have a 99% stenosis of LAD and also needed stenting of OM1 and OM 2. States he never had any chest discomfort. Last night while at home he developed a burping and belching sensation as well. It lasted about 3 and half hours. He had no discomforts. Found nothing really to worsen or improve it. He was concerned as it felt the same as the symptoms led to his stenting in the past. He has followed Dr. Singh for chest pain but has had normal stress test. States he has not had a stress test or heart catheterization since stenting. He has seen Dr. Bridges for paroxysmal SVT and had a scheduled ablation September 06 for that. 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 He was placed on antibiotics for period of time secondary to that. Has not noticed any arrhythmias since. History of CAD with 3 stents July 02, 2018. Hyperlipidemia and diabetes. Denies hypertension. His father had CAD. Lifetime non-smoker. Denies alcohol or illicit drug use. DS: Diagnosis Discharge Diagnosis (1) CAD (coronary artery disease): Status: Chronic (2) Ventricular tachycardia (paroxysmal): Status: Acute (3) Hyperlipidemia: Status: Chronic (4) Paroxysmal supraventricular tachycardia: Status: Chronic DS: Summary 48-year-old white male presented to the chest pain center for evaluation for his heart as he has some symptoms that worried him including burping and belching which was similar to previous symptoms leading to his cardiac catheterization needing stents. He was placed on observation and cardiac enzymes obtained was negative. He was seen by his vp construction Dr. Singh perform a cardiac catheterization which revealed no high-grade CAD except for tiny areas of very distal RCA and diagonal. His EF was normal. Previous stents placed were widely patent. Medical management was recommended including starting metoprolol 25 mg p.o. twice daily, imdur, aspirin and Brilinta. His Lipitor was increased from 20-40 mg p.o. daily. At this time, patient has gained maximum benefit from hospitalization is ready to be discharge to home with outpatient follow-up with his primary care physician and vp construction Dr. Singh. Time Spent with Patient Total time spent providing and/or coordinating discharge services: Less than 30 minutes Quality: VTE Deep Vein Thrombosis/Pulmonary Embolism Present on Admission: No Exam Resp Effort & Inspection: no use of accessory muscles Auscultation: clear to auscultation bilaterally Cardio Rate: regular rate Rhythm: regular rhythm Heart Sounds: no murmurs GI Inspection: non-distended Palpation: soft, no hepatosplenomegaly and nontender Skin General: dry skin (warm) Neuro General: alert and awake Cranial Nerves: other Speech: speech normal Motor: no movement abnormalities noted Extrem General: normal to inspection, no clubbing, no cyanosis and no edema Results Procedures completed during hospitalization: 10/04cardiac catheterization Labs on day of discharge: Labs from last 24 hours 10/05/18 10/05/18 10/05/18 07:24 04:39 04:39 WBC 8.1 RBC 3.84 L Hgb 10.9 L Hct 34.1 L MCV 88.9 MCH 28.4 MCHC 32.0 RDW 15.3 Plt Count 187 MPV 10.0 APTT Sodium 143 Potassium 3.7 Chloride 107 Carbon Dioxide 26.4 Anion Gap 10 BUN 12 Creatinine 0.94 Estimated GFR 85 L POC Glucose 108 Random Glucose 107 H Calcium 8.6 10/05/18 10/04/18 10/04/18 04:39 20:06 17:19 WBC RBC Hgb Hct MCV MCH MCHC RDW Plt Count MPV APTT 25.2 D Sodium Potassium Chloride Carbon Dioxide Anion Gap BUN Creatinine Estimated GFR POC Glucose 116 H 97 Random Glucose Calcium Impressions ITS Impressions Chest X-Ray 10/02/18 00:12 CONCLUSION: Negative examination. Discharge Plan Discharge Disposition Patient Disposition: 01 Discharge Home Discharge Condition Condition: Good Discharge Order Discharge Orders: Discharge Order (Routine); Ordered 10/05/18 Ordered By: Lexi Webb Cardiology Clear for Discharge (Routine); Ordered 10/05/18 Ordered By: Long Singh Physicians Team ED Provider: Imelda Becerra ED Midlevel Provider: Filipe Aldrich Primary Care Provider: Blaire Mascorro Attending Provider: Lexi Webb Other Providers: Eliecer Valdez ; [facility],Insurance Rxs /Orders / Referrals /Forms Prescriptions: New metoprolol tartrate 25 mg Tablet 25 mg PO BID Qty: 60 RF: 0 atorvastatin 20 mg Tablet 40 mg PO DAILY Qty: 30 RF: 0 isosorbide mononitrate 30 mg Tablet Extended Release 24 Hr 30 mg PO DAILY@0700 Qty: 30 RF: 0 Continue aspirin 81 mg Tablet,Chewable 81 mg PO DAILY RF: 0 metformin 1,000 mg Tablet,Er Claudette.Retention 24 Hr 2,000 mg PO DAILY RF: 0 ticagrelor [Brilinta] 90 mg Tablet 90 mg PO BID RF: 0 Discontinued atorvastatin 20 mg Tablet 20 mg PO DAILY RF: 0 Referrals: Long Singh MD [Physician] - See Instructions ( Please call the physician's office to book the appointment to be seen within [2 to 3 weeks].) Blaire Mascorro MD [Primary Care Provider] - See Instructions ( Please call the physician's office to book the appointment to be seen within [ 1 week]. ) Post Discharge Care Plan Care Plan Goals: Your Health Problems: CAD Goals to Promote Your Health: * To prevent worsening of your condition * To maintain your health at the optimal level Directions to Meet Your Goals: * Take your medications as prescribed * Follow your dietary instruction * Follow activity as directed * Keep your appointments as scheduled * Take your immunizations and boosters as scheduled * If your symptoms worsen call your PCP * If no PCP go to Urgent Care or Emergency Room Smoking is dangerous to your health. Avoid second hand smoke. You may reach the 24-hour crisis hotline for domestic abuse at . Status ED Status: Left Department
[2018-10-05] MEDS ORDERED: Metoprolol Tartrate 25 MG Tablet PO SCH (10:00)
[2018-10-05 20:56] VITALS: PULSE 60
== END 2018-10-05 09:52 | disposition home or self-care (01) ==
LOC: NEPE 23:22 → NEDA 23:22 → NEPHCDU 10-02 02:49 → N04 10-02 20:15
PROVIDERS: ADMIT Family Medicine; ATTEND Family Medicine